=== PATIENT | female | born 1925 | race Caucasian/White ===

== ENCOUNTER 2016-02-20 18:16 | Inpatient (IN) | payer OTHER, BC ==
[~2016-02-20] VITALS: Ht 157.5 cm; Wt 51.3 kg
--- NOTE | ~2016-02-20 | HC ---
[facility] [place] [address] CONSULTATION Name: BRIT CRUM Room #: 402-P [facility] M.R.#: [id number] Admission: 02/20/16 Attend Phys: Skip Marx MD Discharge: 02/24/16 Date of : [birth year] Report #: [id number] THIS REPORT FOR: //name// CC: Beau Marx DATE OF SERVICE: 02/23/2016 REASON FOR CONSULTATION: Competency. HISTORY OF PRESENT ILLNESS: This lady was admitted with concerns about hip pain. She had only recently been discharged from this facility for a gallstone which was removed. She was also in [facility] recently. She had expressed concern to some providers about her inability to care for herself, but now is wanting to return home and believed she can manage all of her own affairs. She understands it seems that the problem with her hip could be somewhat chronic, but she is hopeful that the steroid injection will give her some relief and believes that "I can still do what I need to do to care for myself." Although I am having trouble finding the exact documentation, there apparently had been some concerns conveyed to the hospital via the patient's monitor and storage bin tender about the apartment being somewhat cluttered to the point that it could affect safety, self-care and activities of daily living. The patient denies depression. She admits that the apartment is "a little bit crowded" but does not appreciate the use of the word cluttered or the implication that she cannot attend to her own affairs. PAST PSYCHIATRIC HISTORY: It does not appear the patient has seen a psychiatrist before; at least she denies psychiatric history, though she has been prescribed psychotropic medication such as alprazolam for anxiety and Ambien for insomnia. ALLERGIES: No known drug allergies. CURRENT MEDICATIONS: Albuterol p.r.n., melatonin 3 mg at bedtime, metoprolol 100 daily, budesonide 0.5 twice daily and morphine p.r.n. PAST MEDICAL HISTORY: Gallstones, sacroiliitis, hypertension and asthma. SOCIAL HISTORY: She currently is living alone. She lives in the [facility] and room and board is approximately 3000 dollars a month. 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 The patient notes that she had even traveled to [place] on one occasion to get some merchandise and inventory. She explains that perhaps what they are concerned about in her apartment is "all the [place] [email or web address] furniture." There are no [facility] [address] [place] [address] CONSULTATION Name: BRIT CRUM Room #: 402-P [facility] M.R.#: [id number] Admission: 02/20/16 Attend Phys: Skip Marx MD Discharge: 02/24/16 Date of : [birth year] Report #: [id number] active substance abuse issues. , again, passed March 23, 2015. She reports that they had been for 58 years. COGNITIVE EXAMINATION: She is alert to person and place. She orients approximately to time. She has recall for where she lives and the basics with respect to her monthly budget as far as income and debits. She understands about her medical problems and while she does not remember, all the names of her medications verbatim, she is able to reference her medication list. She shows fair memory for what has been recommended with respect to her vision and explains that Dr. 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 She notes that she does not intend to drive in her current situation. She recalls that the gallbladder surgery was recommended, but explains why she refused. MENTAL STATUS EXAM: female, casually dressed. No involuntary movements, stable mood and affect, circumstantial thought process, no formal thought disorder. No suicidal ideation, no homicidal ideation, no hallucinations, no delusions. Insight and judgment are fair. DIAGNOSES: AXIS I: Primary insomnia; anxiety disorder, not otherwise specified. Cognitive disorder, not otherwise specified. AXIS II: Deferred. AXIS III: Sacroiliitis, glaucoma, choledocholithiasis, asthma. AXIS IV: Moderate. AXIS V: 45. RECOMMENDATIONS: It appears the patient may have some cognitive deficits and is forgetful at times, but it does not appear at this time, there is enough proven impairment with respect to her ability to handle her affairs to recommend a guardian. Certainly, she is not at any acute risk and having the department of aging or senior services check in on her, it is still something that can be done as an outpatient. Interestingly, she is talking about moving to a different place, does acknowledge that the current residence is very expensive and it is not completely clear to me whether or not she is taking advantage of the all inclusive meals and activities. As a lot of the collateral information has come to me second or division merchandise manager through a few nurses and the patient's monitor and storage bin tender, I would suspect there are some administrators on the premises who might better be able to attest to this lady's abilities. <ELECTRONICALLY SIGNED> By: Miguel Resendiz MD 03/02/16 [id number] Miguel Resendiz MD /wicho
[~2016-02-20 18:16] MED LIST: AMBIEN 5 MG TABL5 M1 PO; AUGMENTIN 875-1 EACH PO; CLEOCIN HCL150 MG PO; LIDODERM 5%1 PATC1 TRANSDERM; NORVASC5 MG PO; OMEPRAZOLE40 MG PO; PREDNISONE 5 MG5 M1 PO; SYMBICORT160 MCG/4. INH; TOPROL XL100 MG PO; TRAMADOL 50 MG50 MG PO; VENTOLIN HFA 1818 GM INH; XANAX 0.25 MG0.25 MG PO; ZOFRAN ODT4 MG PO; ZOLPIDEM TART12.5 M1 PO
[2016-02-20 18:18] VITALS: BP 182/81
[2016-02-20 18:42] LABS: ABSOLUTE NEUTROPHILS 8.5 thou/uL (1.4-8.2); BASOPHILS 0.7 % (0.0-2.0); EOSINOPHILS 1.1 % (0.0-3.0); HEMATOCRIT 44.2 % (37.0-47.0); HEMOGLOBIN 15.2 gm/dL (12.0-15.0); LYMPHOCYTES 14.1 % (24.0-44.0); MCH 31.2 pg (26.0-34.0); MCHC 34.4 % (28.0-37.0); MCV 90.6 fL (80.0-100.0); PLATELET COUNT 329 thou/uL (150-400); POLYS 76.1 % (36.0-66.0); RBC 4.88 mil/uL (4.20-5.00); RDW 14.1 % (10.5-14.5); WBC 11.1 thou/uL (4.0-11.0)
[2016-02-20 18:44] LABS: MANUAL DIFF NO
[2016-02-20 18:55] LABS: CALCIUM 9.5 mg/dL (8.5-10.1); CREATININE 0.9 mg/dL (0.6-1.3); POTASSIUM 3.6 mmol/L (3.5-5.1)
[2016-02-20 19:01] LABS: ALBUMIN 3.7 g/dL (3.4-5.0); DIRECT BILIRUBIN 0.1 mg/dL (<0.1-0.3); TOTAL BILIRUBIN 0.5 mg/dL (<0.1-1.0); TOTAL PROTEIN 7.1 g/dL (6.4-8.2)
[2016-02-20 20:19] LABS: URINE BILIRUBIN NEGATIVE (Negative); URINE BLOOD 2+ (Negative); URINE COLOR YELLOW; URINE GLUCOSE-RANDOM* NEGATIVE (Negative); URINE KETONES 1+ (Negative); URINE NITRITE NEGATIVE (Negative); URINE PROTEIN (DIPSTICK) NEGATIVE (Negative); URINE SPECIFIC GRAVITY <= 1.005 (1.003-1.035); URINE UROBILINOGEN 0.2 E.U./dl (0.2-1.0)
[2016-02-20 20:26] LABS: BACTERIA None Seen /HPF (None Seen); SQUAMOUS 0-3 Few /LPF (0-3); URINE RBC 0-2 Rare /HPF (0-2); URINE WBC None Seen /HPF (0-5)
[2016-02-20 20:27] LABS: CASTS None Seen /LPF (None Seen); CRYSTALS None Seen /LPF (None Seen)
[2016-02-20 22:00] VITALS: BP 140/61
[2016-02-21 03:50] VITALS: BP 169/68
[2016-02-21 08:18] VITALS: BP 157/73
[2016-02-21 16:21] VITALS: BP 127/70
[2016-02-21 20:00] VITALS: BP 127/64
[2016-02-22 04:30] VITALS: BP 144/78
[2016-02-22 05:24] LABS: CALCIUM 8.9 mg/dL (8.5-10.1); CREATININE 0.7 mg/dL (0.6-1.3); POTASSIUM 3.4 mmol/L (3.5-5.1)
[2016-02-22 10:10] VITALS: BP 145/78
[2016-02-22 17:01] VITALS: BP 152/84
[2016-02-22 19:20] VITALS: BP 135/79
[2016-02-23 04:00] VITALS: BP 140/78
[2016-02-23 07:15] VITALS: BP 135/75
[2016-02-23 16:15] VITALS: BP 127/67
[2016-02-23 21:09] VITALS: BP 152/76
[2016-02-24 04:40] VITALS: BP 140/69
[2016-02-24 08:00] VITALS: BP 124/68
[2016-02-24] MEDS ORDERED: VOLTAREN GEL 1100 G1 TOP (12:07)
[2016-02-24] MEDS ORDERED: COLACE100 MG PO (12:19)
[2016-02-24] MEDS ORDERED: MIRALAX17 GM PO (12:19)
[2016-02-24] MEDS ORDERED: TRAMADOL 50 MG50 MG PO (12:32)
[2016-02-24 12:35] VITALS: BP 140/69
[2016-02-24] MEDS ORDERED: ZOFRAN4 MG PO (13:34)
== END 2016-02-24 14:08 | disposition home health service (06) | DRG 552 ==
LOC: ER 18:16 → EROBS 20:20 → 4N 20:20
PROVIDERS: Internal Medicine Endocrinology, Diabetes & Metabolism; Nurse Practitioner
DX: M46.1 Sacroiliitis, not elsewhere classified (principal); F19.20 Other psychoactive substance dependence, uncomplicated; M54.30 Sciatica, unspecified side; I10 Essential (primary) hypertension; J45.909 Unspecified asthma, uncomplicated; F41.9 Anxiety disorder, unspecified; R10.13 Epigastric pain; F51.01 Primary insomnia; F09 Unspecified mental disorder due to known physiological condition; F63.9 Impulse disorder, unspecified; M19.90 Unspecified osteoarthritis, unspecified site; R53.1 Weakness; R11.2 Nausea with vomiting, unspecified; K59.00 Constipation, unspecified; Z98.890 Other specified postprocedural states; Z86.718 Personal history of other venous thrombosis and embolism; Z79.899 Other long term (current) drug therapy; Z87.891 Personal history of nicotine dependence; Z90.49 Acquired absence of other specified parts of digestive tract
CPT/HCPCS: 10091

== ENCOUNTER 2016-11-08 12:13 | Emergency (ER) | payer OTHER, BC ==
[~2016-11-08] VITALS: Ht 157.5 cm; Wt 49.9 kg
[~2016-11-08 12:13] MED LIST changes: +COLACE100 MG PO; +MIRALAX17 GM PO; +VOLTAREN GEL 1100 G1 TOP; +ZOFRAN4 MG PO
[2016-11-08 12:16] VITALS: BP 138/75
[2016-11-08] MEDS ORDERED: APAP650 PO (13:12)
[2016-11-08] MEDS ORDERED: MAGIC MOUTHWASH SWISH&SPIT (13:12)
== END 2016-11-08 13:39 | disposition home or self-care (01) ==
LOC: ER 12:13
DX: K08.89 Other specified disorders of teeth and supporting structures (principal); I10 Essential (primary) hypertension; J45.909 Unspecified asthma, uncomplicated; F41.9 Anxiety disorder, unspecified; Z86.718 Personal history of other venous thrombosis and embolism; Z98.890 Other specified postprocedural states; Z87.891 Personal history of nicotine dependence